=== PATIENT | female | born 1940 | race Caucasian/White ===

== ENCOUNTER → 2017-04-23 | Outpatient (CLI) | payer MEDICARE, OTHER ==
--- NOTE | 2017-04-23 18:36 | RADRPT ---
PROCEDURE: CT Brain without contrast. CLINICAL INDICATION: Memory problems and headaches TECHNIQUE: A CT of the brain was performed on a GE [employer] 64-slice CT scanner utilizing axial imaging from the skull base through the vertex without IV contrast. Multiplanar reformatted images were made. Images were reviewed on a PACS workstation. The CTDIvol is 43.95 mGy and the DLP is 630 .20 mGycm. One of the following 3 dose reduction techniques were used: Automated exposure control; adjustment of the mA and/or kV according to patient size; or use of iterative reconstruction technique. COMPARISON: 10/29/[address] FINDINGS: There is no intracranial hemorrhage, mass effect, or midline shift. No extra-axial fluid collection is seen. The ventricles and sulci are age appropriate. Mild diffuse volume loss is present. Confl uent decreased attenuation is present in the bilateral subcortical white matter, bilateral centrum s emiovale, and bilateral periventricular white matter compatible with moderate chronic microvascular ischemic disease. Mild vascular calcifications are present of the intracranial internal carotid art eries. The visualized scalp and calvarium are normal. The bilateral orbits are normal. The bilateral para nasal sinuses, mastoid air cells and middle ear cavities are clear. IMPRESSION: 1. No evidence of acute intracranial hemorrhage, infarcts, or acute intracranial pathology. 2. No significant interval change in the moderate chronic microvascular ischemic disease and mild d iffuse volume loss. 3. Mild atherosclerotic vascular disease RPTAT: HDC .Deysi Sprague MD, Date Time Electronically viewed and signed by .Deysi Sprague MD, on 04/23/2017 18:35 .C/
== END | disposition home or self-care (01) ==
LOC: C/S 08:34
PROVIDERS: ATTEND Internal Medicine
DX: R51 Headache (principal)
CPT/HCPCS: 70450

== ENCOUNTER → 2017-07-19 | Outpatient (CLI) | payer MEDICARE, OTHER ==
[2017-07-19 12:45] LABS: BASOPHILS % 0.7 % (0.0-2.0); EOSINOPHILS % 0.4 % (0.0-7.0); HEMATOCRIT 35.6 % (37.0-47.0); HEMOGLOBIN 11.4 g/dl (12.0-16.0); LYMPHOCYTES # 1.3 10^3/ul (0.8-2.9); MEAN CORPUSCULAR HEMOGLOBIN 30.9 pg (29.0-33.0); MEAN CORPUSCULAR VOLUME 96.5 fl (82.0-101.0); MONOCYTE # 0.5 10^3/ul (0.3-0.9); MONOCYTES % 10.1 % (0.0-11.0); NEUTROPHIL # 2.8 10^3/ul (1.6-7.5); NEUTROPHILS % 60.6 % (39.0-77.0); PLATELET COUNT 181 10^3/UL (140-415); RED BLOOD COUNT 3.69 10^6/ul (4.20-5.40); RED CELL DISTRIBUTION WIDTH 13.2 % (11.5-14.5); WHITE BLOOD COUNT 4.5 10^3/ul (4.8-10.8)
[2017-07-19 13:11] LABS: CALCIUM 9.4 mg/dl (8.4-10.2); CREATININE 0.61 mg/dl (0.44-1.00); POTASSIUM 4.1 mmol/L (3.5-5.1)
== END | disposition home or self-care (01) ==
LOC: LAB 12:21
PROVIDERS: ATTEND Internal Medicine
DX: E86.0 Dehydration (principal); D64.9 Anemia, unspecified
CPT/HCPCS: 80048; 85025

== ENCOUNTER 2017-07-30 17:49 | Emergency (ER) | payer MEDICARE, OTHER ==
[~2017-07-30] VITALS: Ht 157.5 cm; Wt 76.8 kg
[2017-07-30 17:51] VITALS: Ht 157.5 cm; Wt 76.8 kg
[2017-07-30] MEDS ORDERED: ACETAMINOPHEN 500 MG TAB PO STA ×2 (18:06→18:09)
--- NOTE | 2017-07-30 18:39 | RADRPT ---
PROCEDURE: X-ray left shoulder CLINICAL INDICATION: Trauma to left shoulder TECHNIQUE: 3 views left shoulder COMPARISON: None FINDINGS: Comminuted fracture of the left humeral head. Remaining osseous structures without acute fracture. IMPRESSION: Comminuted fracture of the left humeral head. RPTAT: [facility] Physician Faye Date Time Electronically viewed and signed by Farrah Fountain Physician on 07/30/2017 18:39 RS/
--- NOTE | 2017-07-30 18:40 | RADRPT ---
PROCEDURE: X-ray left wrist CLINICAL INDICATION: Injury to left wrist TECHNIQUE: 3 views left wrist COMPARISON: None FINDINGS: Demineralization limits evaluation of fine osseous detail. No acute fracture or dislocation. IMPRESSION: No acute fracture. RPTAT: [facility] Physician Faye Date Time Electronically viewed and signed by Farrah Fountain Physician on 07/30/2017 18:40 RS/
--- NOTE | 2017-07-30 18:43 | RADRPT ---
PROCEDURE: CT head, without contrast. CLINICAL INDICATION: Trauma TECHNIQUE: Noncontrast CT examination of the head, with axial, sagittal and coronal reformatted im ages. Automated dose exposure control was employed. CTDI: 44.73 and DLP: 720.23 COMPARISON: 04/23/2017. FINDINGS: Chronic changes of atrophy and small vessel disease white matter. No acute hemorrhage. Subarachnoid spaces are substantially preserved and symmetric. Ventricles ar e unremarkable. No mass effect. Weathers-white matter distinction is preserved without evident decreased attenuation t o suggest acute or recent infarct. Sinuses and osseous structures are unremarkable. IMPRESSION: Chronic changes of atrophy and small vessel disease white matter, and otherwise, no acute process in the head. RPTAT: [facility] Physician Faye Date Time Electronically viewed and signed by Physician Faye on 07/30/2017 18:43 RS/
--- NOTE | 2017-07-30 18:49 | RADRPT ---
PROCEDURE: Noncontrast CT examination of the facial bones. CLINICAL INDICATION: Trauma to the facial bones. TECHNIQUE: Noncontrast CT examination of the facial bones, with axial, sagittal and coronal reform atted images. CTDI: 29.51 and DLP: 626.18. COMPARISON: None FINDINGS: Age indeterminate mild fractures of the right nasal bones. Otherwise, no acute fracture or dislocati on. Small osteoma in the right frontal ethmoid air cells may be associated with colonic polyposis di sease. The sinuses are otherwise clear. The soft tissues are unremarkable. IMPRESSION: Age indeterminate mild fractures of the right nasal bones, and otherwise no acute fracture. RPTAT: [facility] Physician Faye Date Time Electronically viewed and signed by Physician Faye on 07/30/2017 18:49 RS/
--- NOTE | 2017-07-30 18:54 | RADRPT ---
PROCEDURE: CT cervical spine without contrast CLINICAL INDICATION: Trauma. Neck pain. TECHNIQUE: CT scan of the cervical spine was performed on a [facility] No IV contrast was administered. Coronal and sagittal reformatted images were obtained from th e axial source images. Images were reviewed on a high-resolution PACS workstation. One or more the f ollowing does reduction techniques were utilized: Automated exposure control, adjustment of the mA/ or kV according to patient's size, or use of iterative reconstruction technique. Exam CTDI = 22.35 m Gy and the DLP = 626.96 mGy-cm. COMPARISON: None available. FINDINGS: There is straightening of the alignment of the cervical spine with loss of the normal cervical lordo sis. Alignment remains intact. No acute fracture or dislocation is seen. The vertebral body heigh ts are preserved. No mass, hematoma, or other soft tissue abnormality is seen. There are multilevel mild degenerative changes of the cervical spine, manifested by osteophytosis an d disc height narrowing, most prominent at C5-C6 and C6-C7. There is pleural thickening and scarring in the bilateral lung apices. Uncovertebral osteophytes and facet arthropathy result in multilevel foraminal stenosis: at C2-C3 mild to moderate on the right, and C3-C4 severe on the right, at C4-C5 mild on the left, at C5-C6 mild on the right, at C6-C7 mild on the right. Posterior disc osteophyte complexes contribute to mild spinal canal narrowing at C4-C5 and C5-C6. Moderate to severe right and moderate left atherosclerotic calcification of carotid bulbs are noted. IMPRESSION: 1. Straightening of normal cervical lordosis. 2. No acute fracture or traumatic subluxation. 3. Multilevel mild degenerative changes of the cervical spine, most prominent at C5-C6 and C6-C7. 4. Posterior disc osteophyte complexes contribute to mild spinal canal narrowing at C4-C5 and C5-C6 . 5. Multilevel foraminal stenosis as outlined in details in findings. RPTAT: QQ .Mayo Larson MD, Date Time Electronically viewed and signed by .Mayo Larson MD, on 07/30/2017 18:54 .N/
[2017-07-30] MEDS ORDERED: ACET500C5 PO (19:01)
--- NOTE | 2017-07-30 19:08 | ERD ---
ER Documentation Chief Complaint Date/Time DATE: 07/30/17 TIME: 19:05 Chief Complaint TRIPPED , HAS LEFT ARM PAIN, NOSE BRUISING HPI This 77-year-old female presents after tripping over her dog at home today. She complains of left shoulder pain, left wrist pain, bilateral knee pain. She also has an abrasion and pain swelling of her nasal bridge. There is no history of loss of consciousness, vomiting, visual changes, weakness. ROS All systems reviewed and are negative except as per history of present illness. Medications Home Meds Active Scripts Acetaminophen* (Tylophen*) 500 Mg Capsule, 1 CAP PO Q6H Y for PAIN AND OR ELEVATED TEMP, #15 CAP Prov:ROSALBA MCHUGH MD 07/30/17 PMhx/Soc Medical and Surgical Hx: pt denies Medical Hx History of Surgery: Yes (gallbladder; ) Anesthesia Reaction: No Hx Neurological Disorder: No Hx Respiratory Disorders: No Hx Cardiac Disorders: Yes (htn) Hx Psychiatric Problems: No Hx Miscellaneous Medical Probl: No Hx Alcohol Use: No Hx Substance Use: No Hx Tobacco Use: No Smoking Status: Never smoker Physical Exam Vitals Vital Signs Date Time Temp Pulse Resp B/P Pulse Ox O2 Delivery O2 Flow Rate FiO2 07/30/17 17:51 98.1 80 20 165/72 99 Physical Exam Const: [], [id number]. Head: Atraumatic there is an abrasion and mild swelling of the nasal bridge. Is no active bleeding or deformities. There is no septal hematoma appreciated. Eyes: Normal Conjunctiva ENT: Normal External Ears, Nose and Mouth. Neck: Full range of motion..~ No meningismus. Resp: Clear to auscultation bilaterally Cardio: Regular rate and rhythm, no murmurs Abd: Soft, non tender, non distended. Normal bowel sounds Skin: No petechiae or rashes Back: No midline or flank tenderness Ext: No cyanosis, or edema. Tenderness over the left proximal humerus or shoulder. There is mild tenderness in the left wrist without snuffbox tenderness or deformities, restricted range of motion or weakness. Neur: Awake and alert Psych: Normal Mood and Affect Results 24 hrs Current Medications Medications (Trade) Dose Ordered Sig/Michael Route PRN Reason Start Time Stop Time Status Last Admin Dose Admin Acetaminophen (Tylenol Tab) 500 mg ONCE STAT PO 07/30/17 18:06 07/30/17 18:28 DC Acetaminophen (Tylenol Tab) 500 mg ONCE STAT PO 07/30/17 18:09 07/30/17 18:10 DC 07/30/17 18:46 Procedures/MDM X-ray left shoulder 3V Interpreted by me: Bones: Comminuted left humeral head fracture Joints: No dislocation Foreign body: None impression-comminuted nondisplaced left humeral head fracture X-ray left wrist 3V Interpreted by me: Scaphoid: [Normal] Bones: [No fracture] Joints: [No dislocation] Foreign body: [None] impression have a normal left wrist x-ray The brain, cervical spine showed no acute abnormalities. There are old fractures on CT facial bones without acute appearing fracture. She was given Tylenol for pain and placed in a left shoulder immobilizer. Patient is neurovascular intact after immobilizer. Patient had a wound dressed as well. Patient was discharged home with orthopedic and primary care follow- up and return precautions regarding head injury and mechanical fall. She should return for new or worsening symptoms with primary doctor this week. No evidence of ischemia, bacterial infection or additional acute abnormalities noted on physical exam. The patient was stable with no new complaints during the ER course. Clinically, there is no current evidence to suggest meningitis, sepsis, acute abdomen, pneumonia, acute coronary syndrome, pulmonary embolism, or any other emergent condition appearing to require further evaluation or hospitalization. The patient should certainly return for any new or worsening symptoms per the aftercare instructions. They should otherwise follow-up with her primary care doctor for reevaluation this week. Departure Diagnosis: Primary Impression: Head injury Encounter type: initial encounter Qualified Code: S09.90XA - Injury of head , initial encounter Additional Impression: Fall Encounter type: initial encounter Qualified Code: W19.XXXA - Fall, initial encounter Condition: Stable Patient Instructions: Fall, Mechanical, HEAD INJURY, No Wake-Up (Adult), Nasal Contusion, Fracture, Shoulder Referrals: MEAGAN DENNISON MD,IN KONSTANTIN HAZEL Additional Instructions: Examinations show fracture of left proximal humerus. See orthopedics for further evaluation and treatment. There is possible old appearing nasal fractures that do not appear new. Recheck for redness of the wound, new worsening symptoms of head injury or with orthopedist and primary doctor as commended. ROSALBA MCHUGH MD Jul 30, 2017 19:08
[2017-07-30 19:55] VITALS: BP 152/72; PULSE 72; RESP 20; TEMP 98.1
== END 2017-07-30 19:57 | disposition home or self-care (01) ==
LOC: FTE 17:49
DX: S09.90XA Unspecified injury of head, initial encounter (principal); I10 Essential (primary) hypertension; R51 Headache; W18.49XA Other slipping, tripping and stumbling without falling, initial encounter; Y92.009 Unspecified place in unspecified non-institutional (private) residence as the place of occurrence of the external cause
CPT/HCPCS: 70450; 70486; 72125; 73030

== ENCOUNTER → 2019-03-10 | Outpatient (CLI) | payer MEDICARE, OTHER ==
[~2019-03-10] MED LIST: ACET500C5 PO
== END | disposition home or self-care (01) ==
LOC: C/S 13:50
PROVIDERS: ATTEND Internal Medicine
DX: F03.90 Unspecified dementia, unspecified severity, without behavioral disturbance, psychotic disturbance, mood disturbance, and anxiety (principal); I67.82 Cerebral ischemia
CPT/HCPCS: 70450